=== PATIENT | female | born 2000 | race Caucasian/White ===

== ENCOUNTER → 2022-07-21 14:35 | Outpatient (BNVA) | payer BC, SELFPAY | PROVIDERS: PCP Physician Assistant; Visit Provider Nurse Practitioner Psychiatric/Mental Health | DX: F11.20 Opioid dependence, uncomplicated (principal) | CPT/HCPCS: 80305 ==

== ENCOUNTER → 2022-07-26 11:29 | Outpatient (BNVA) | payer BC, SELFPAY | PROVIDERS: PCP Physician Assistant; Visit Provider Nurse Practitioner Psychiatric/Mental Health | DX: Z51.81 Encounter for therapeutic drug level monitoring (principal); Z79.899 Other long term (current) drug therapy | CPT/HCPCS: 80305 ==

== ENCOUNTER → 2022-08-23 16:03 | Outpatient (BNVA) | payer BC, SELFPAY | PROVIDERS: PCP Physician Assistant; Visit Provider Nurse Practitioner Psychiatric/Mental Health | DX: Z51.81 Encounter for therapeutic drug level monitoring (principal); F11.20 Opioid dependence, uncomplicated | CPT/HCPCS: 80305 ==

== ENCOUNTER 2022-08-31 16:08 | Outpatient (REF) | payer BC, SELFPAY ==
[2022-08-31 16:57] LABS: MANUAL DIFF FLAG NO
[2022-08-31 17:17] LABS: Basophils Percent Auto 0.8 % (0-2); Eosinophils Absolute Auto 0.2 X10*3/uL (0.0-0.4); Eosinophils Percent Auto 3.5 % (0-4); Hematocrit 37.6 % (37.0-47.0); Hemoglobin 12.1 g/dl (12.0-16.0); Imm Gran Abs Auto 0.01 X10*3/uL (0.00-0.03); Imm Gran Pct Auto 0.2 % (0.0-0.4); Lymphocytes Absolute Auto 2.8 X10*3/uL (1.2-4.9); Mean Corpuscular HGB Conc 32.2 g/dl (31.0-35.0); Mean Corpuscular Hemoglobin 27.4 pg (27.0-33.0); Mean Corpuscular Volume 85.1 fL (80.0-98.0); Mean Platelet Volume 9.9 fL (9.4-12.3); Monocytes Absolute Auto 0.5 X10*3/uL (0.1-1.2); Neutrophils Absolute Auto 1.4 x10*3/uL (2.0-8.3); Neutrophils Percent Auto 27.5 % (45-73); Platelet Count 226 X10*3/uL (160-400); Red Blood Count 4.42 X10*6/uL (4.20-5.50); Red Cell Distribution Width 15.2 % (11.0-16.0); White Blood Count 4.9 X10*3/uL (4.8-10.8)
[2022-08-31 17:51] LABS: Alanine Aminotransferase 192 U/L (0-31); Albumin Level 4.2 g/dL (3.5-5.0); Alkaline Phosphatase 140 U/L (39-117); Anion Gap 16 (12-20); Aspartate Amino Transferase 84 U/L (5-31); Bilirubin Direct < 0.2 mg/dL (0.0-0.5); Bilirubin Total 0.3 mg/dL (0.0-1.0); Blood Urea Nitrogen 9 mg/dL (9-16); Carbon Dioxide 24 mmol/L (22-29); Chloride 107 mmol/L (96-108); Estimated Glomerular Filt Rate > 60; Glucose Random 103 mg/dL (60-115); Potassium 4.6 mmol/L (3.3-5.1); Sodium 142 mmol/L (135-145); Total Protein 7.5 g/dL (6.5-8.0)
[2022-09-01 07:59] LABS: HBS Num1 12.21 mIU/mL (0-7.99); HBc Num1 0.11 S/CO (0.00-0.79); HBsAGNum1 0.23 S/CO (0.00-0.99); Hepatitis A Antibody IgM 0.29 Index (0-0.79); Hepatitis B Core Antibody Nonreactive (Nonreactive); Hepatitis B Surface Antigen Negative (Negative); ~HepC Num1 14.49 S/CO (0.00-0.79); ~Hepatitis A Antibody IgM Nonreactive (Nonreactive); ~Hepatitis B Surface Antibody REACTIVE (Nonreactive); ~Hepatitis C Antibody Reactive (Nonreactive)
== END 2022-08-31 16:09 | disposition home or self-care (01) ==
LOC: HO.LAB 16:08
PROVIDERS: PCP Physician Assistant; Visit Provider Nurse Practitioner Psychiatric/Mental Health
DX: F11.20 Opioid dependence, uncomplicated (principal); Z51.81 Encounter for therapeutic drug level monitoring; Z79.899 Other long term (current) drug therapy
CPT/HCPCS: 36415; 80048; 80076; 80305; 85025; 86704; 86706; 86709; 86803; 87340

== ENCOUNTER 2022-09-10 16:10 | Outpatient (REF) | payer BC, SELFPAY ==
[2022-09-10 17:00] LABS: Alanine Aminotransferase 33 U/L (0-31); Albumin Level 4.5 g/dL (3.5-5.0); Alkaline Phosphatase 115 U/L (39-117); Aspartate Amino Transferase 28 U/L (5-31); Bilirubin Direct 0.2 mg/dL (0.0-0.5); Bilirubin Total 0.4 mg/dL (0.0-1.0); Total Protein 7.8 g/dL (6.5-8.0)
[2022-09-14 20:46] LABS: HCV Log PCR 3.55 Log IU/mL (NOT DETECTED); HepC Viral Load 3550 IU/mL (NOT DETECTED)
== END 2022-09-10 16:11 | disposition home or self-care (01) ==
LOC: HO.LAB 16:10
PROVIDERS: Visit Provider Nurse Practitioner Psychiatric/Mental Health
DX: F11.20 Opioid dependence, uncomplicated (principal); Z51.81 Encounter for therapeutic drug level monitoring
CPT/HCPCS: 36415; 80076; 80305; 87522

== ENCOUNTER → 2022-09-17 16:00 | Outpatient (BNVA) | payer BC, SELFPAY | PROVIDERS: PCP Physician Assistant; Visit Provider Nurse Practitioner Psychiatric/Mental Health | DX: F11.20 Opioid dependence, uncomplicated (principal); Z32.02 Encounter for pregnancy test, result negative; Z51.81 Encounter for therapeutic drug level monitoring; Z79.899 Other long term (current) drug therapy | CPT/HCPCS: 80305; 81025; 96372 ==

== ENCOUNTER → 2022-10-15 15:57 | Outpatient (BNVA) | payer BC, SELFPAY | PROVIDERS: PCP Physician Assistant; Visit Provider Nurse Practitioner Psychiatric/Mental Health | DX: Z51.81 Encounter for therapeutic drug level monitoring (principal); F11.20 Opioid dependence, uncomplicated; F10.10 Alcohol abuse, uncomplicated | CPT/HCPCS: 80305; 81025; 96372 ==

== ENCOUNTER → 2022-10-19 16:15 | Outpatient (BNVA) | payer BC, SELFPAY | PROVIDERS: PCP Physician Assistant; Visit Provider Nurse Practitioner Psychiatric/Mental Health | DX: F10.10 Alcohol abuse, uncomplicated (principal) ==

== ENCOUNTER → 2022-11-11 15:50 | Outpatient (BNVA) | payer BC, SELFPAY | PROVIDERS: PCP Physician Assistant; Visit Provider Nurse Practitioner Psychiatric/Mental Health | DX: F11.20 Opioid dependence, uncomplicated (principal); F10.10 Alcohol abuse, uncomplicated; Z51.81 Encounter for therapeutic drug level monitoring; Z79.899 Other long term (current) drug therapy | CPT/HCPCS: 80305; 96372 ==

== ENCOUNTER → 2022-12-08 15:57 | Outpatient (BNVA) | payer BC, SELFPAY | PROVIDERS: PCP Physician Assistant; Visit Provider Nurse Practitioner Psychiatric/Mental Health | DX: Z51.81 Encounter for therapeutic drug level monitoring (principal); F11.20 Opioid dependence, uncomplicated; F10.10 Alcohol abuse, uncomplicated | CPT/HCPCS: 80305; 81025; 96372 ==

== ENCOUNTER → 2023-01-04 16:12 | Outpatient (BNVA) | payer BC, SELFPAY | PROVIDERS: PCP Physician Assistant; Visit Provider Nurse Practitioner Psychiatric/Mental Health | DX: Z51.81 Encounter for therapeutic drug level monitoring (principal); F11.20 Opioid dependence, uncomplicated; F10.10 Alcohol abuse, uncomplicated | CPT/HCPCS: 80305; 81025; 96372 ==

== ENCOUNTER → 2023-02-04 10:23 | Outpatient (BNVA) | payer BC, SELFPAY | PROVIDERS: PCP Physician Assistant; Visit Provider Nurse Practitioner Psychiatric/Mental Health | DX: F11.20 Opioid dependence, uncomplicated (principal); F10.10 Alcohol abuse, uncomplicated; Z79.899 Other long term (current) drug therapy | CPT/HCPCS: 80305; 81025; 96372 ==

== ENCOUNTER → 2023-03-04 15:49 | Outpatient (BNVA) | payer BC, SELFPAY | PROVIDERS: PCP Physician Assistant; Visit Provider Nurse Practitioner Psychiatric/Mental Health | DX: F11.20 Opioid dependence, uncomplicated (principal); F10.20 Alcohol dependence, uncomplicated; Z79.899 Other long term (current) drug therapy | CPT/HCPCS: 80305; 81025; 96372 ==

== ENCOUNTER → 2023-04-01 16:04 | Outpatient (BNVA) | payer BC, SELFPAY | PROVIDERS: PCP Physician Assistant; Visit Provider Nurse Practitioner Psychiatric/Mental Health | DX: Z51.81 Encounter for therapeutic drug level monitoring (principal); F11.20 Opioid dependence, uncomplicated; Z32.02 Encounter for pregnancy test, result negative | CPT/HCPCS: 80305; 81025; 96372 ==

== ENCOUNTER → 2023-04-29 15:55 | Outpatient (BNVA) | payer BC, SELFPAY | PROVIDERS: PCP Physician Assistant; Visit Provider Nurse Practitioner Psychiatric/Mental Health | DX: F11.20 Opioid dependence, uncomplicated (principal); F10.20 Alcohol dependence, uncomplicated | CPT/HCPCS: 80305; 81025; 96372 ==

== ENCOUNTER 2023-06-01 15:14 | Outpatient (AMB) | payer BC, SELFPAY ==
--- NOTE | 2023-06-01 15:19 | A.OFFVIS_ITS ---
Intake Intake Visit Reasons: bup inj Intake Note: The patient presents for a bup inj Sectionizer Required: No Allergies No Known Allergies Allergy (Verified 06/01/23 15:19) Do you need a note to return to daycare/school/sports/work: No HPI bup inj HPI Details Patient presents for follow-up and Sublocade injection. Patient reports that she continues to do well with recovery. Still engaged with the [facility]. Will be starting school in July, spoke with the admissions people today. Excited and motivated about this. Reporting that she continues to have occasional withdrawal symptoms, states that it happens between 2 to 4 times a month. Symptoms relieved by taking 4 mg film. No other side effects to report. Review of Systems Const Reports as per HPI and Reports no additional complaints Physical Exam Const General: cooperative, healthy appearing, comfortable, no acute distress, well developed and alert Nutritional Appearance: average body habitus Orientation/consciousness: patient oriented x3 Limitations: no limitations Neuro General: patient oriented x3 Psych Appearance: grossly normal Mental Status: mental status grossly normal Speech and movement: Normal speech and movement present Affect: normal affect Attitude: cooperative Thought process: Normal thought process present Thought content: Normal thought content present Insight: Good insight present (Psych) Judgement: Good judgement present (Psych) Office Meds Sublocade ER Performing Provider: Melissa Rojas CNP Administered by: Dianna Moy RN on 06/01/23 16:26 Dose Route Admin Location Lot Number Expiration Date [facility] Outside Industrial Sales Representative 100 mg subcut LLQ [id number] 05/29/24 [address]-1 [employer] Comments: Pt tolerated injection. Pt reminded to monitor for s/s of infection, pain, swelling, redness, fever. Results AMB 14 Panel Urine Drug Screen Urine Marijuana (THC) Positive Last Edit by Rema Hernandez CMA on 06/01/23 15:31 Urine Cocaine Negative Last Edit by Rema Hernandez CMA on 06/01/23 15:31 Urine Morphine Negative Last Edit by Rema Hernandez CMA on 06/01/23 15:31 Urine Methamphetamine Negative Last Edit by Rema Hernandez CMA on 06/01/23 15:31 Urine Amphetamine Negative Last Edit by Rema Hernandez CMA on 06/01/23 15:3 1 Urine Benzodiazepine Negative Last Edit by Rema Hernandez CMA on 06/01/23 15:31 Urine Barbiturates Negative Last Edit by Rema Hernandez CMA on 06/01/23 15: 31 Urine Methadone Negative Last Edit by Rema Hernandez CMA on 06/01/23 15:31 Urine Buprenorphine Positive Last Edit by Rema Hernandez CMA on 06/01/23 15 :31 Urine Tricyclic Antidepressant Negative Last Edit by Rema Hernandez CMA on 06/01/23 15:31 Urine MDMA Negative Last Edit by Rema Hernandez CMA on 06/01/23 15:31 Urine Oxycodone Negative Last Edit by Rema Hernandez CMA on 06/01/23 15:31 Urine Phencyclidine Negative Last Edit by Rema Hernandez CMA on 06/01/23 15 :31 Urine Propoxyphene Negative Last Edit by Rema Hernandez CMA on 06/01/23 15: 31 AMB Test Urine AMB Test Urine Negative Last Edit by Rema Hernandez CMA on 15:32 Results Reviewed Results Reviewed: Laboratory Last Values [facility] Clinic Negative 06/01/23 15:20 POC Urine Buprenorphine Positive 06/01/23 15:20 POC Urine Morphine Negative 06/01/23 15:20 POC Urine Oxycodone Negative 06/01/23 15:20 POC Urine Methadone Negative 06/01/23 15:20 POC Urine Propoxyphene Negative 06/01/23 15:20 POC Urine Barbiturates Negative 06/01/23 15:20 POC U Tricyclic Antidpr Negative 06/01/23 15:20 POC Urine PCP Negative 06/01/23 15:20 POC Ur Amphetamines Negative 06/01/23 15:20 POC Ur Methamphetamine Negative 06/01/23 15:20 POC Urine MDMA Negative 06/01/23 15:20 POC Ur Benzodiazepine Negative 06/01/23 15:20 POC Urine Cocaine Negative 06/01/23 15:20 POC Ur Marijuana (THC) Positive 06/01/23 15:20 Assessment & Plan Assessment & Plan (1) Opioid use disorder, severe, dependence: Code(s): F11.20 - Opioid dependence, uncomplicated Plan: * Tolerated injection * Follow-up 4 weeks (2) Alcohol use disorder, severe, dependence: Code(s): F10.20 - Alcohol dependence, uncomplicated Plan: * Relapse prevention discussion Orders: Orders 2 AMB Buprenorphine Injection - Patient Supplied Today F10.20 - Alcohol dependence, uncomplicated, F11.20 - Opioid dependence, uncomplicated AMB 14 Panel Urine Drug Screen Today Z51.81 - Encounter for therapeutic drug level monitoring AMB HCG Urine Test Today Z32.01 - Encounter for test, result positive, Z32.02 - Encounter for test, result negative Medications: New naloxone 4 mg/actuation (Narcan) spray 1 dose into ONE nostril. Wait two minutes before spraying second dose in other nostril. 4 mg intranasal Q2M PRN 2 ea 2RF opioid overdose Refilled buprenorphine-naloxone 8-2 mg (Suboxone) use daily as needed for breakthrough withdrawal symptoms. 1 film sublingual DAILY PRN 10 ea 0RF withdrawal symptoms Coding Level of Care Code Est Pt Level 3 (88946) Diagnoses Opioid use disorder, severe, dependence F11.20 Alcohol use disorder, severe, dependence F10.20
== END 2023-06-01 16:08 | disposition home or self-care (01) ==
LOC: HO.HCC 15:14
PROVIDERS: PCP Physician Assistant; Visit Provider Nurse Practitioner Psychiatric/Mental Health
DX: Z32.02 Encounter for pregnancy test, result negative (principal); Z32.01 Encounter for pregnancy test, result positive; F10.20 Alcohol dependence, uncomplicated; F11.20 Opioid dependence, uncomplicated; Z51.81 Encounter for therapeutic drug level monitoring
CPT/HCPCS: 99213; Q9991

== ENCOUNTER → 2023-06-01 15:14 | Outpatient (BNVA) | payer BC, SELFPAY | PROVIDERS: PCP Physician Assistant; Visit Provider Nurse Practitioner Psychiatric/Mental Health | DX: F11.20 Opioid dependence, uncomplicated (principal); F10.20 Alcohol dependence, uncomplicated; Z51.81 Encounter for therapeutic drug level monitoring; Z79.899 Other long term (current) drug therapy; Z32.02 Encounter for pregnancy test, result negative | CPT/HCPCS: 80305; 81025; 96372 ==

== ENCOUNTER 2023-07-13 13:21 | Outpatient (AMB) | payer BC, SELFPAY ==
--- NOTE | 2023-07-13 13:24 | AM.OFFVISNUR ---
Intake Vital Signs 07/13/23 13:36 BP 116/78 Blood Pressure Location Lt radial Position Sitting Pulse 72 Pulse Source Pulse Oximeter Pulse Oximetry (%) 96 Oxygen Delivery Method Room Air Intake Visit Reasons: bup inj Intake Note: the patient presents for a sub inj Extension Associate Required: No Allergies No Known Allergies Allergy (Verified 07/13/23 13:28) Do you need a note to return to daycare/school/sports/work: No Results AMB 14 Panel Urine Drug Screen Urine Marijuana (THC) Positive Last Edit by Rema Hernandez CMA on 07/13/23 13:38 Urine Cocaine Negative Last Edit by Rema Hernandez CMA on 07/13/23 13:38 Urine Morphine Negative Last Edit by Rema Hernandez CMA on 07/13/23 13:38 Urine Methamphetamine Negative Last Edit by Rema Hernandez CMA on 07/13/23 13:38 Urine Amphetamine Negative Last Edit by Rema Hernandez CMA on 07/13/23 13:38 Urine Benzodiazepine Negative Last Edit by Rema Hernandez CMA on 07/13/23 13:38 Urine Barbiturates Negative Last Edit by Rema Hernandez CMA on 07/13/23 13:38 Urine Methadone Negative Last Edit by Rema Hernandez CMA on 07/13/23 13:38 Urine Buprenorphine Negative Last Edit by Rema Hernandez CMA on 07/13/23 13:38 Urine Tricyclic Antidepressant Negative Last Edit by Rema Hernandez CMA on 07/13/23 13:38 Urine MDMA Negative Last Edit by Rema Hernandez CMA on 07/13/23 13:38 Urine Oxycodone Negative Last Edit by Rema Hernandez CMA on 07/13/23 13:38 Urine Phencyclidine Negative Last Edit by Rema Hernandez CMA on 07/13/23 13:38 Urine Propoxyphene Negative Last Edit by Rema Hernandez CMA on 07/13/23 13:38 AMB Test Urine AMB Test Urine Negative Last Edit by Rema Hernandez CMA on 07/13/23 13:39 Coding Assessment & Plan Assessment & Plan Orders: Orders AMB 14 Panel Urine Drug Screen Today Z51.81 - Encounter for therapeutic drug level monitoring AMB HCG Urine Test Today Z32.01 - Encounter for test, result positive, Z32.02 - Encounter for test, result negative
[2023-07-13 13:36] VITALS: BP 116/78; PULSE 72; O2SAT 96
== END 2023-07-13 14:04 | disposition home or self-care (01) ==
LOC: HO.HCC 13:21
PROVIDERS: PCP Physician Assistant; Visit Provider Nurse Practitioner Family
DX: Z32.02 Encounter for pregnancy test, result negative (principal); Z32.01 Encounter for pregnancy test, result positive; F11.20 Opioid dependence, uncomplicated; Z51.81 Encounter for therapeutic drug level monitoring
CPT/HCPCS: Q9991

== ENCOUNTER → 2023-07-13 13:21 | Outpatient (BNVA) | payer BC, SELFPAY | PROVIDERS: PCP Physician Assistant; Visit Provider Nurse Practitioner Family | DX: F11.20 Opioid dependence, uncomplicated (principal) | CPT/HCPCS: 80305; 81025; 96372 ==

== ENCOUNTER 2023-08-15 15:52 | Outpatient (AMB) | payer BC, SELFPAY ==
--- NOTE | 2023-08-15 15:57 | MHC.OFFVIS ---
Intake Vital Signs 08/15/23 16:05 BP 110/70 Blood Pressure Location Lt radial Position Sitting Pulse 74 Pulse Source Pulse Oximeter Pulse Oximetry (%) 96 Oxygen Delivery Method Room Air Intake Visit Reasons: Sub Inj Intake Note: The patient presents for a sub inj Bale Breaker Operator Required: No Allergies No Known Allergies Allergy (Verified 08/15/23 15:59) HPI Sub Inj HPI Details Patient presents for 4 week follow up and sublocade injection. Doing well with recovery--still attending school and working Considering Brixadi for next injection reporting almost daily headaches--planning to see PCP soon States that she discontinued BC 2 months ago and headaches began shortly after that Review of Systems Const Reports as per HPI and Reports no additional complaints Physical Exam Vital Signs: Last Vital Signs Pulse 74 08/15/23 16:05 BP 110/70 08/15/23 16:05 Pulse Ox 96 08/15/23 16:05 Oxygen Delivery Method Room Air 08/15/23 16:05 Const General: cooperative, healthy appearing, comfortable, no acute distress, well developed and alert Nutritional Appearance: average body habitus Orientation/consciousness: patient oriented x3 Limitations: no limitations Neuro General: patient oriented x3 Psych Appearance: grossly normal Mental Status: mental status grossly normal Speech and movement: Normal speech and movement present Affect: normal affect Attitude: cooperative Thought process: Normal thought process present Thought content: Normal thought content present Insight: Good insight present (Psych) Judgement: Good judgement present (Psych) Office Meds Sublocade 100 mg/0.5 mL solution,extended release subcutaneous syringe Performing Provider: Cheryle Veliz NP Performing Location: [email or web address] Administered by: Cheryle Veliz NP on 08/15/23 16:40 Dose Route Admin Location Dispensed Lot Number Expiration Date [facility] Ball Assembler 100 mg subcut LLQ 0.5 mL [id number] 07/30/24 [address]-1 [employer] Comments: No signs of redness, swelling, drainage to prior inj site. Pt tolerated injection well. Encouraged to call [facility] with questions or concerns. Results AMB Test Urine AMB Test Urine Negative Last Edit by Rema Hernandez CMA on 08/15/23 16:08 Results Reviewed Results Reviewed: Laboratory Last Values [facility] Clinic Negative 08/15/23 15:58 Assessment & Plan Assessment & Plan (1) Opioid use disorder, severe, dependence: Code(s): F11.20 - Opioid dependence, uncomplicated Plan: tolerated injection follow up 4 weeks will order brixadi Orders: Orders AMB HCG Urine Test Today Z32.01 - Encounter for test, result positive, Z32.02 - Encounter for test, result negative Melissa Rojas CNP AMB Buprenorphine Injection - Patient Supplied Today F11.20 - Opioid dependence, uncomplicated Cheryle Veliz NP Coding Level of Care Code Est Pt Level 4 (21182) Diagnoses Opioid use disorder, severe, dependence F11.20
[2023-08-15 16:05] VITALS: BP 110/70; PULSE 74; O2SAT 96
== END 2023-08-15 16:32 | disposition home or self-care (01) ==
PROVIDERS: PCP Physician Assistant; Visit Provider Nurse Practitioner Psychiatric/Mental Health
DX: F11.20 Opioid dependence, uncomplicated (principal)
CPT/HCPCS: 99214

== ENCOUNTER → 2023-08-15 15:52 | Outpatient (BNVA) | payer BC, SELFPAY | PROVIDERS: PCP Physician Assistant; Visit Provider Nurse Practitioner Psychiatric/Mental Health | DX: F11.20 Opioid dependence, uncomplicated (principal) | CPT/HCPCS: 81025; 96372; Q9992 ==

== ENCOUNTER 2023-09-12 15:53 | Outpatient (AMB) | payer BC, SELFPAY ==
--- NOTE | 2023-09-12 15:53 | AM.OFFVISNUR ---
Intake Vital Signs 09/12/23 16:05 BP 122/70 Blood Pressure Location Lt radial Position Sitting Pulse 91 Pulse Source Pulse Oximeter Pulse Oximetry (%) 99 Oxygen Delivery Method Room Air Intake Visit Reasons: Sub Inj Intake Note: the patient presents for a sub inj Terminal Makeup Operator Required: No Allergies No Known Allergies Allergy (Verified 09/12/23 16:05) Nursing Note Pt presents for OUD follow up and Sublocade injection. Reports things are going well, working and going to school online. Working with [facility] and utilizing their coach professional athletes, reports it is helpful. Thinking about spacing out next Sublocade injection---going to make appt in 5 weeks instead of 4. Will call and move appt up if she feels 5 weeks is too long. Office Meds Sublocade 100 mg/0.5 mL solution,extended release subcutaneous syringe Performing Provider: Cheryle Veliz NP Performing Location: [facility] Administered by: Ayleen Maldonado on 09/12/23 16:14 Dose Route Admin Location Dispensed Lot Number Expiration Date [facility] Software Quality Automation Engineer 100 mg subcut LUQ 0.5 mL [id number] 07/04/24 [address]-4 [employer]. Comments: Pt tolerated injection well. Educated on signs/symptoms of infection, encouraged to call the [facility] with questions or concerns. Results AMB Test Urine AMB Test Urine Negative Last Edit by Rema Hernandez CMA on 09/12/23 16:07 Coding Assessment & Plan Assessment & Plan Orders: Orders AMB Buprenorphine Injection - Patient Supplied 09/12/23 F11.20 - Opioid dependence, uncomplicated Cheryle Veliz NP AMB HCG Urine Test 09/12/23 Z32.01 - Encounter for test, result positive, Z32.02 - Encounter for test, result negative Cheryle Veliz NP Medications: Refilled quetiapine Take 100 mg tablet with quetiapine 50 mg tablet at bedtime, for total bedtime dose of 150 mg. 100 mg PO BEDTIME 30 tabs 2RF Melissa Rojas CNP quetiapine Take 50 mg at 08:00, 13:00, bedtime. 50 mg PO TID 90 tabs 2RF Melissa Rojas CNP
[2023-09-12 16:05] VITALS: BP 122/70; PULSE 91; O2SAT 99
== END 2023-09-12 16:29 | disposition home or self-care (01) ==
PROVIDERS: PCP Physician Assistant; Visit Provider Nurse Practitioner Family
DX: F11.20 Opioid dependence, uncomplicated (principal)

== ENCOUNTER → 2023-09-12 15:53 | Outpatient (BNVA) | payer BC, SELFPAY | PROVIDERS: PCP Physician Assistant; Visit Provider Nurse Practitioner Family | DX: F11.20 Opioid dependence, uncomplicated (principal); Z32.02 Encounter for pregnancy test, result negative; Z51.81 Encounter for therapeutic drug level monitoring; Z79.899 Other long term (current) drug therapy | CPT/HCPCS: 81025; 96372; Q9992 ==

== ENCOUNTER 2023-10-17 15:53 | Outpatient (AMB) | payer BC, SELFPAY ==
--- NOTE | 2023-10-17 15:56 | MHC.AM.SUB ---
Intake Vital Signs 10/17/23 16:07 BP 110/70 Blood Pressure Location Lt radial Position Sitting Pulse 99 Pulse Source Pulse Oximeter Pulse Oximetry (%) 96 Oxygen Delivery Method Room Air Intake Visit Reasons: SUB Inj Intake Note: the patient presets for a sub inj Medical Writer Required: No Allergies No Known Allergies Allergy (Verified 10/17/23 16:09) Do you need a note to return to daycare/school/sports/work: No HPI SUB Inj HPI Details Patient presents for OUD treatment and follow up Reports she is doing well, is receiving paperwork tomorrow to enable her to get her driving license re-instated which she is pleased about. She is expressing desire to try and quit vaping, requesting a script for 14mg nicotine patches as she felt the 21mg ones were too strong. Has no recovery concerns today. Review of Systems Const Reports as per HPI Physical Exam Vital Signs: Last Vital Signs Pulse 99 10/17/23 16:07 BP 110/70 10/17/23 16:07 Pulse Ox 96 10/17/23 16:07 Oxygen Delivery Method Room Air 10/17/23 16:07 Const General: cooperative, healthy appearing and no acute distress Resp Effort & Inspection: normal respiratory effort Skin General skin exam: no rashes or lesions noted Psych Appearance: grossly normal and well kempt Mental Status: mental status grossly normal Attitude: cooperative Thought process: Normal thought process present Thought content: Normal thought content present Insight: Good insight present (Psych) Office Meds Sublocade 100 mg/0.5 mL solution,extended release subcutaneous syringe Performing Provider: Cheryle Veliz NP Performing Location: [facility] Administered by: Cheryle Veliz NP on 10/17/23 16:22 Dose Route Admin Location Dispensed Lot Number Expiration Date [facility] Program Administrator 100 mg subcut RLQ 0.5 mL [id number] 12/28/24 [address]-7 [employer]. Comments: Patient tolerated injection well. Reviewed s/sx of infection, encouraged to call [facility] with any questions or concerns. Results AMB Test Urine AMB Test Urine Negative Last Edit by Rema Hernandez CMA on 10/17/23 16:12 Results Reviewed Results Reviewed: Laboratory Last Values [facility]st Clinic Negative 10/17/23 16:09 Assessment & Plan Assessment & Plan (1) Opioid use disorder, severe, dependence: Code(s): F11.20 - Opioid dependence, uncomplicated Plan: Tolerated injection follow up 4 weeks Orders: Orders AMB HCG Urine Test Today Z32.01 - Encounter for test, result positive, Z32.02 - Encounter for test, result negative AMB Buprenorphine Injection - Patient Supplied Today F11.20 - Opioid dependence, uncomplicated Medications: New nicotine 1 patch transdermal DAILY 14 ea 0RF Coding Level of Care Code Est Pt Level 3 (45459) Diagnoses Opioid use disorder, severe, dependence F11.20
[2023-10-17 16:07] VITALS: BP 110/70; PULSE 99; O2SAT 96
== END 2023-10-17 16:22 | disposition home or self-care (01) ==
PROVIDERS: PCP Physician Assistant; Visit Provider Nurse Practitioner Family
DX: Z32.02 Encounter for pregnancy test, result negative (principal); Z32.01 Encounter for pregnancy test, result positive; F11.20 Opioid dependence, uncomplicated
CPT/HCPCS: 99213

== ENCOUNTER → 2023-10-17 15:53 | Outpatient (BNVA) | payer BC, SELFPAY | PROVIDERS: PCP Physician Assistant; Visit Provider Nurse Practitioner Family | DX: F11.20 Opioid dependence, uncomplicated (principal) | CPT/HCPCS: 81025; 96372; Q9992 ==

== ENCOUNTER 2023-11-22 15:56 | Outpatient (AMB) | payer BC, SELFPAY ==
--- NOTE | 2023-11-22 16:01 | AM.OFFVISNUR ---
Intake Vital Signs 11/22/23 16:14 BP 120/74 Blood Pressure Location Lt radial Position Sitting Pulse 78 Pulse Source Pulse Oximeter Pulse Oximetry (%) 97 Oxygen Delivery Method Room Air Intake Visit Reasons: SUB Inj Intake Note: the patient presents for a sub inj Fountain Manager Required: No Allergies No Known Allergies Allergy (Verified 11/22/23 16:03) Do you need a note to return to daycare/school/sports/work: No Nursing Note Patient here today for Sublocade injection, denies any concerns or complications from previous. A+O x4, in good spirits, speaking in clear/full sentences. Patient requesting an increase in her nicotine patch and a refill on her seroquel, will send to provider. Patient also states she is interested in learning more about Brixadi and speaking with Cheryle MCNAMARA about this. Appt made in 4 weeks, will talk to Cheryle, and in the mean time states she will check with insurance. Office Meds Sublocade 100 mg/0.5 mL solution,extended release subcutaneous syringe Performing Provider: Cheryle Veliz NP Performing Location: [facility] Administered by: Saima Rashid RN on 11/22/23 16:07 Dose Route Admin Location Dispensed Lot Number Expiration Date [facility] Occupational Therapist Home Based 100 mg subcut LLQ 0.5 mL [id number] 12/01/24 [address]-6 [email or web address]. Results AMB Test Urine AMB Test Urine Negative Last Edit by Rema Hernandez CMA on 11/22/23 16:20 Coding Assessment & Plan Assessment & Plan Orders: Orders AMB HCG Urine Test Today Z32.01 - Encounter for test, result positive, Z32.02 - Encounter for test, result negative AMB Buprenorphine Injection - Patient Supplied Today F11.20 - Opioid dependence, uncomplicated
[2023-11-22 16:14] VITALS: BP 120/74; PULSE 78; O2SAT 97
== END 2023-11-22 16:25 | disposition home or self-care (01) ==
PROVIDERS: PCP Physician Assistant
DX: Z32.02 Encounter for pregnancy test, result negative (principal); Z32.01 Encounter for pregnancy test, result positive; F11.20 Opioid dependence, uncomplicated

== ENCOUNTER → 2023-11-22 15:56 | Outpatient (BNVA) | payer BC, SELFPAY | PROVIDERS: PCP Physician Assistant | DX: F11.20 Opioid dependence, uncomplicated (principal) | CPT/HCPCS: 81025; 96372; Q9992 ==

== ENCOUNTER 2023-12-27 15:47 | Outpatient (AMB) | payer BC, SELFPAY ==
--- NOTE | 2023-12-27 15:47 | MHC.AM.SUB ---
Intake Vital Signs 12/27/23 15:53 BP 120/60 Blood Pressure Location Lt brachial Position Sitting Respiration 18 Pulse 85 Pulse Source Pulse Oximeter Pulse Oximetry (%) 96 Intake Visit Reasons: MAT Visit/ SUB Inj Allergies No Known Allergies Allergy (Verified 11/22/23 16:03) HPI MAT Visit/ SUB Inj HPI Details Patient presents for monthly sublocade injection She reports school is going well, work is going well Denies any recovery related concerns, denies cravings, tolerating suboxone injection well Asking about spacing her injection further apart due to impending change of insurance coverage in July She is expressing concern about out of pocket costs Reports she is making progress getting her drivers license reinstated, all that is left is to get paperork from [facility] and have a breathalyzer installed. Review of Systems Const Reports as per HPI Physical Exam Vital Signs: Last Vital Signs Pulse 85 12/27/23 15:53 Resp 18 12/27/23 15:53 BP 120/60 12/27/23 15:53 Pulse Ox 96 12/27/23 15:53 Const General: cooperative and healthy appearing Resp Effort & Inspection: normal respiratory effort Psych Appearance: grossly normal Mental Status: mental status grossly normal Speech and movement: Normal speech and movement present Affect: normal affect Attitude: cooperative Office Meds Sublocade 100 mg/0.5 mL solution,extended release subcutaneous syringe Performing Provider: Cheryle Veliz NP Performing Location: [facility] Administered by: Saima Rashid RN on 12/27/23 16:18 Dose Route Admin Location Dispensed Lot Number Expiration Date [facility] Bench Press Operator 100 mg subcut rlq 0.5 mL [id number] 12/29/24 [address]-8 [email or web address]. Comments: Patient tolerated injection well with no stated or noted side effects. will call [facility] with any questions or concerns. Results AMB Test Urine AMB Test Urine Negative Last Edit by Saima Rashid RN on 12/27/23 16:27 Results Reviewed Results Reviewed: Laboratory Last Values Tst Clinic Negative 12/27/23 15:54 Assessment & Plan Assessment & Plan (1) Opioid use disorder, severe, dependence: Code(s): F11.20 - Opioid dependence, uncomplicated Plan: -Discussed risks of stopping injections too soon in her recovery -Discussed with her about looking into obtaining insurance coverage before making any decisions -Follow up 4 weeks Orders: Orders AMB HCG Urine Test Today F10.20 - Alcohol dependence, uncomplicated AMB Buprenorphine Injection - Patient Supplied Today F10.20 - Alcohol dependence, uncomplicated Coding Level of Care Code Est Pt Level 3 (43927) Diagnoses Opioid use disorder, severe, dependence F11.20
[2023-12-27 15:53] VITALS: BP 120/60; PULSE 85; RESP 18; O2SAT 96
== END 2023-12-27 16:17 | disposition home or self-care (01) ==
PROVIDERS: PCP Physician Assistant; Visit Provider Nurse Practitioner Family
DX: F10.20 Alcohol dependence, uncomplicated (principal); F11.20 Opioid dependence, uncomplicated
CPT/HCPCS: 99213

== ENCOUNTER → 2023-12-27 15:47 | Outpatient (BNVA) | payer BC, SELFPAY | PROVIDERS: PCP Physician Assistant; Visit Provider Nurse Practitioner Family | DX: F10.20 Alcohol dependence, uncomplicated (principal); F11.20 Opioid dependence, uncomplicated | CPT/HCPCS: 81025; 96372; Q9992 ==

== ENCOUNTER 2024-01-31 15:59 | Outpatient (AMB) | payer BC, SELFPAY ==
--- NOTE | 2024-01-31 16:03 | MHC.AM.SUB ---
Intake Vital Signs 01/31/24 16:09 BP 122/68 Blood Pressure Location Lt radial Position Sitting Pulse 98 Pulse Source Pulse Oximeter Pulse Oximetry (%) 99 Oxygen Delivery Method Room Air Intake Visit Reasons: sub inj Intake Note: The patient presents for a sub inj Instructor Of Sociology Required: No Allergies No Known Allergies Allergy (Verified 11/22/23 16:03) Do you need a note to return to daycare/school/sports/work: No Results AMB Test Urine AMB Test Urine Negative Last Edit by Rema Hernandez CMA on 01/31/24 16:10 Assessment & Plan Assessment & Plan Orders: Orders AMB HCG Urine Test Today Z32.01 - Encounter for test, result positive, Z32.02 - Encounter for test, result negative Coding
[2024-01-31 16:09] VITALS: BP 122/68; PULSE 98; O2SAT 99
--- NOTE | 2024-01-31 16:16 | AM.OFFVISNUR ---
Intake Vital Signs 01/31/24 16:09 BP 122/68 Blood Pressure Location Lt radial Position Sitting Pulse 98 Pulse Source Pulse Oximeter Pulse Oximetry (%) 99 Oxygen Delivery Method Room Air Intake Visit Reasons: sub inj Allergies No Known Allergies Allergy (Verified 11/22/23 16:03) Nursing Note Patient in to clinic today for sublocade injection. Patient states she is doing well in recovery, was trying to elongate her injections to 5 weeks the past 2 injections, but was having hot flashes, I educated patient that it is prescribed every 4 and recommended to try that. She agrees. She was very happy, well appearing, dressed in work uniform, smiling, states she is going to a [employer] [facility] fair to try and get better insurance and was hopeful. Office Meds Sublocade 100 mg/0.5 mL solution,extended release subcutaneous syringe Performing Provider: Cheryle Veliz NP Performing Location: [facility] Administered by: Saima Rashid RN on 01/31/24 16:31 Dose Route Admin Location Dispensed Lot Number Expiration Date [facility] Stonecutter Assistant 100 mg subcut LLQ 0.5 mL [id number] 07/01/24 [address]-2 [facility]. Results AMB Test Urine AMB Test Urine Negative Last Edit by Rema Hernandez CMA on 01/31/24 16:10 Coding Assessment & Plan Assessment & Plan Orders: Orders AMB Buprenorphine Injection - Patient Supplied Today F11.20 - Opioid dependence, uncomplicated AMB HCG Urine Test Today Z32.01 - Encounter for test, result positive, Z32.02 - Encounter for test, result negative
== END 2024-01-31 16:30 | disposition home or self-care (01) ==
PROVIDERS: PCP Physician Assistant
DX: Z32.02 Encounter for pregnancy test, result negative (principal); Z32.01 Encounter for pregnancy test, result positive; F11.20 Opioid dependence, uncomplicated

== ENCOUNTER → 2024-01-31 15:59 | Outpatient (BNVA) | payer BC, SELFPAY | PROVIDERS: PCP Physician Assistant | DX: F11.20 Opioid dependence, uncomplicated (principal) | CPT/HCPCS: 81025; 96372; Q9992 ==

== ENCOUNTER 2024-02-28 15:55 | Outpatient (AMB) | payer BC, SELFPAY ==
--- NOTE | 2024-02-28 15:54 | AM.OFFVISNUR ---
Intake Vital Signs 02/28/24 15:57 BP 138/88 Blood Pressure Location Lt brachial Position Sitting Pulse 85 Pulse Source Pulse Oximeter Pulse Oximetry (%) 99 Oxygen Delivery Method Room Air Intake Visit Reasons: sub inj Allergies No Known Allergies Allergy (Verified 02/28/24 15:58) Nursing Note Patient to office for injection today, alert and oriented x4. Patient tolerated injection with no stated or noted complications. She acknowledged that her insurance will be running out in july, we have talked previously about calling [employer] to start application, she verbally agrees to doing this and was also given the number to our financial sales assistant. Office Meds Sublocade 100 mg/0.5 mL solution,extended release subcutaneous syringe Performing Provider: Cheryle Veliz NP Performing Location: [facility] Administered by: Saima Rashid RN on 02/28/24 16:14 Dose Route Admin Location Dispensed Lot Number Expiration Date [facility] Dynamics Ax Developer 100 mg subcut 0.5 mL [id number] 12/29/24 [address]-6 [employer]. Coding Assessment & Plan Assessment & Plan Orders: Orders AMB Buprenorphine Injection - Patient Supplied Today F11.20 - Opioid dependence, uncomplicated
[2024-02-28 15:57] VITALS: BP 138/88; PULSE 85; O2SAT 99
== END 2024-02-28 16:37 | disposition home or self-care (01) ==
PROVIDERS: PCP Physician Assistant
DX: F11.20 Opioid dependence, uncomplicated (principal)

== ENCOUNTER → 2024-02-28 15:55 | Outpatient (BNVA) | payer BC, SELFPAY | PROVIDERS: PCP Physician Assistant | DX: F11.20 Opioid dependence, uncomplicated (principal) | CPT/HCPCS: 96372; Q9992 ==

== ENCOUNTER 2024-03-28 15:58 | Outpatient (AMB) | payer BC, SELFPAY ==
[2024-03-28 15:57] VITALS: BP 122/80; PULSE 85; O2SAT 99
--- NOTE | 2024-03-28 15:57 | AM.OFFVISNUR ---
Intake Vital Signs 03/28/24 15:57 BP 122/80 Blood Pressure Location Lt brachial Position Sitting Pulse 85 Pulse Source Pulse Oximeter Pulse Oximetry (%) 99 Oxygen Delivery Method Room Air Intake Visit Reasons: sub inj Allergies No Known Allergies Allergy (Verified 02/28/24 15:58) Office Meds Sublocade 100 mg/0.5 mL solution,extended release subcutaneous syringe Performing Provider: Cheryle Veliz NP Performing Location: [facility] Administered by: Saima Rashid RN on 03/28/24 16:19 Dose Route Admin Location Dispensed Lot Number Expiration Date [facility] Quality Systems Engineer 100 mg subcut 0.5 mL [id number] 12/29/24 [address]-3 [employer]. Results AMB Test Urine AMB Test Urine Negative Last Edit by Lizbeth Cornelius CMA on 03/28/24 16:04 Coding Assessment & Plan Assessment & Plan Orders: Orders AMB Buprenorphine Injection - Patient Supplied Today F11.20 - Opioid dependence, uncomplicated AMB HCG Urine Test Today Z32.02 - Encounter for test, result negative Medications: New Sublocade ER (buprenorphine) 100 mg (0.5 mL) subcut ONCE 0.5 mL 0RF NS F11.20 - Opioid dependence, uncomplicated
== END 2024-03-28 16:21 | disposition home or self-care (01) ==
PROVIDERS: PCP Physician Assistant
DX: F11.20 Opioid dependence, uncomplicated (principal); Z32.02 Encounter for pregnancy test, result negative

== ENCOUNTER → 2024-03-28 15:58 | Outpatient (BNVA) | payer BC, SELFPAY | PROVIDERS: PCP Physician Assistant | DX: F11.20 Opioid dependence, uncomplicated (principal); Z32.02 Encounter for pregnancy test, result negative | CPT/HCPCS: 81025; 96372; Q9992 ==

== ENCOUNTER 2024-05-02 15:50 | Outpatient (AMB) | payer BC, SELFPAY ==
--- NOTE | 2024-05-02 16:41 | AM.OFFVISNUR ---
Intake Visit Reasons: sub inj Allergies No Known Allergies Allergy (Verified 02/28/24 15:58) Nursing Note Patient to office for sublocade 100mg injection, which was administered in the RLQ, patient tolerated well with no noted or stated side effects. Patient was in good spirits, smiling, talking in clear/full sentences. Will see me in 4 weeks for follow up and understands she will need to see the provider at her visit 4 weeks after next for follow up. Office Meds Sublocade 100 mg/0.5 mL solution,extended release subcutaneous syringe Performing Provider: Melissa Rojas CNP Performing Location: [facility] Administered by: Siama Rashid RN on 05/02/24 09:29 Dose Route Admin Location Dispensed Lot Number Expiration Date [facility] Hand Slitter 100 mg subcut RLQ 0.5 mL [id number] 12/29/24 [address]-9 [place]. Assessment & Plan Assessment & Plan Orders: Orders AMB Buprenorphine Injection - Patient Supplied 05/02/24 F11.20 - Opioid dependence, uncomplicated
== END 2024-05-02 16:09 | disposition home or self-care (01) ==
PROVIDERS: PCP Physician Assistant
DX: F11.20 Opioid dependence, uncomplicated (principal)

== ENCOUNTER → 2024-05-02 15:50 | Outpatient (BNVA) | payer BC, SELFPAY | PROVIDERS: PCP Physician Assistant | DX: F11.20 Opioid dependence, uncomplicated (principal) | CPT/HCPCS: 96372; Q9992 ==

== ENCOUNTER 2024-05-29 15:56 | Outpatient (AMB) | payer BC, SELFPAY ==
--- NOTE | 2024-05-29 16:06 | MHC.AM.SUB ---
Intake Visit Reasons: MAT/sub inj Allergies No Known Allergies Allergy (Verified 02/28/24 15:58) HPI HPI MAT/sub inj: Details: Patient presents for follow up and Sublocade injection Doing well with medication. 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 Will be switching insurance at the end of July, concerned about medications and injection--encouraged to let us know as soon as she finds out what her new insurance will be Taking a long weekend with her dog at the end of May, looking forward to that Review of Systems Const Reports as per HPI and Reports no additional complaints Physical Exam Const General: cooperative, healthy appearing and well groomed Nutritional Appearance: average body habitus Orientation/consciousness: patient oriented x3 Limitations: no limitations Neuro General: patient oriented x3 Office Meds Sublocade 100 mg/0.5 mL solution,extended release subcutaneous syringe Performing Provider: Melissa Rojas CNP Performing Location: [facility] Administered by: Ayleen Maldonado on 05/29/24 16:11 Dose Route Admin Location Dispensed Lot Number Expiration Date [facility] Head Cashier 100 mg subcut RUQ 0.5 mL [id number] 12/29/24 [address]-3 [employer]. Comments: Pt tolerated injection well. Educated on signs/symptoms of infection, encouraged to call the [facility] with questions or concerns. Results AMB Test Urine AMB Test Urine Negative Last Edit by Ayleen Maldonado on 05/29/24 16:11 Results Reviewed Results Reviewed: Laboratory Last Values [facility] Negative 05/29/24 16:09 Assessment & Plan Assessment & Plan (1) Opioid use disorder, severe, dependence: Code(s): F11.20 - Opioid dependence, uncomplicated Category: Medical Plan: tolerated injection follow up 4-5 weeks encouraged to call office with any concerns before next appt Orders: Orders AMB HCG Urine Test 05/29/24 F11.20 - Opioid dependence, uncomplicated AMB Buprenorphine Injection - Patient Supplied 05/29/24 F11.20 - Opioid dependence, uncomplicated
== END 2024-05-29 16:36 | disposition home or self-care (01) ==
PROVIDERS: PCP Physician Assistant; Visit Provider Nurse Practitioner Psychiatric/Mental Health
DX: F11.20 Opioid dependence, uncomplicated (principal)
CPT/HCPCS: 99213

== ENCOUNTER → 2024-05-29 15:56 | Outpatient (BNVA) | payer BC, SELFPAY | PROVIDERS: PCP Physician Assistant | DX: F11.20 Opioid dependence, uncomplicated (principal) | CPT/HCPCS: 81025; 96372; Q9992 ==

== ENCOUNTER 2024-06-26 09:08 | Outpatient (AMB) | payer BC, SELFPAY ==
--- NOTE | 2024-06-26 09:20 | AM.OFFVISNUR ---
Intake Visit Reasons: Sub Injection Allergies No Known Allergies Allergy (Verified 02/28/24 15:58) Nursing Note Patient Presents for Sublocade Injection. Current Dose 100mg . Given in the RUQ with no noted or stated complication. Denies any issues with previous injection. Denies symptoms, and denies any break through cravings. Will follow up with RN in 4 weeks for injection. Office Meds Sublocade 100 mg/0.5 mL solution,extended release subcutaneous syringe Performing Provider: Melissa Rojas CNP Performing Location: [facility] Administered by: Saima Rashid RN on 06/26/24 09:10 Dose Route Admin Location Dispensed Lot Number Expiration Date [facility] Lithographic Proofer 100 mg subcut RUQ 0.5 mL [id number] 08/31/25 [address]-2 [employer]. Assessment & Plan Assessment & Plan Orders: Orders AMB Buprenorphine Injection - Patient Supplied 06/26/24 F11.90 - Opioid use, unspecified, uncomplicated Medications: New Sublocade ER (buprenorphine) 100 mg (0.5 mL) subcut ONCE 0.5 mL 0RF NS F11.90 - Opioid use, unspecified, uncomplicated
== END 2024-06-26 10:06 | disposition home or self-care (01) ==
PROVIDERS: PCP Physician Assistant
DX: F11.90 Opioid use, unspecified, uncomplicated (principal)

== ENCOUNTER → 2024-06-26 09:08 | Outpatient (BNVA) | payer BC, SELFPAY | PROVIDERS: PCP Physician Assistant | DX: F11.90 Opioid use, unspecified, uncomplicated (principal) | CPT/HCPCS: 96372; Q9992 ==

== ENCOUNTER 2024-07-25 16:02 | Outpatient (AMB) | payer BC, SELFPAY ==
--- NOTE | 2024-07-25 17:25 | AM.OFFVISNUR ---
Intake Visit Reasons: Sub Injection Allergies No Known Allergies Allergy (Verified 02/28/24 15:58) Nursing Note Patient Presents for sublocade Injection. Current Dose is 100mg. Given in the LUQ with no noted or stated complications. Denies any issues with previous injection. Denies symptoms, and denies any break through cravings. will follow up with RN in 4 weeks for injection. Will need to see provider for check in September . Office Meds Sublocade 100 mg/0.5 mL solution,extended release subcutaneous syringe Performing Provider: Melissa Rojas CNP Performing Location: [facility] Administered by: Saima Rashid RN on 07/27/24 15:31 Dose Route Admin Location Dispensed Lot Number Expiration Date [facility] Brood Station Manager 100 mg subcut LUQ 0.5 mL [id number] 08/31/25 [address]-7 [employer]. Assessment & Plan Assessment & Plan Orders: Orders Comprehensive Met. Panel 07/26/24 Z79.899 - Other long term care administrator (current) drug therapy AMB Buprenorphine Injection - Patient Supplied 07/25/24 F11.90 - Opioid use, unspecified, uncomplicated Medications: New Sublocade ER (buprenorphine) 100 mg (0.5 mL) subcut ONCE 0.5 mL 0RF NS F11.90 - Opioid use, unspecified, uncomplicated Discontinued clonidine HCl Discontinued Reason: Patient no longer taking 0.1 mg PO BID PRN 14 tabs 0RF withdrawls , anxiety
== END 2024-07-25 16:41 | disposition home or self-care (01) ==
PROVIDERS: PCP Physician Assistant
DX: F11.90 Opioid use, unspecified, uncomplicated (principal)

== ENCOUNTER → 2024-07-25 16:02 | Outpatient (BNVA) | payer BC, SELFPAY | PROVIDERS: PCP Physician Assistant | DX: F11.90 Opioid use, unspecified, uncomplicated (principal) | CPT/HCPCS: 96372; Q9992 ==

== ENCOUNTER 2024-11-07 16:05 | Outpatient (AMB) | payer BC, SELFPAY ==
--- OUTSIDE RECORDS SUMMARY | 2024-11-07 16:07 | XMS_ITS ---
Author Name [facility] Organization Unknown History of Medication Use Medication Directions Dispensed Refills Start Date End Date [facility] NICOTINE 21MG/24H PATCH 14S, [RxNorm: [id number]]mzigci51/01/2 022APPLY 1 PATCH TOPICALLY TO THE SKIN DAILY APPLY 1 PATCH TOPICALLY TO THE SKIN DAILY 07/15/2023 active HYDROXYZINE HCL 25MG TABS (WHITE), [RxNorm: [id number]]cniovr07/06/2 023TAKE 1 TABLET BY MOUTH THREE TIMES DAILY NEEDED FOR ANXIETY TAKE 1 TABLET BY MOUTH THREE TIMES DAILY NEEDED FOR ANXIETY 07/15/2023 active buprenorphine ER 100 mg/0.5 mL solutionexten.rel.merino bcutaneous syringe, [RxNorm: [id number] buprenorphine ER 100 mg/0.5 mL solutionexten.rel.merino bcutaneous syringe, [RxNorm: 0665304]buipbg18202207/15/2023 active NICOTINE 21MG/24H PATCH 14S, [RxNorm: [id number]]rrxeba97/01/2 022APPLY 1 PATCH TOPICALLY TO THE SKIN DAILY APPLY 1 PATCH TOPICALLY TO THE SKIN DAILY 07/15/2023 active QUETIAPINE FUMARATE 50 MG TAB, [RxNorm: 910306]uxviqv63/17/2 023TAKE 1 TABLET BY MOUTH 3 TIMES A DAY AT 8AM 1PM AND BEDTIME TAKE 1 TABLET BY MOUTH 3 TIMES A DAY AT 8AM, 1PM, AND BEDTIME 07/15/2023 active QUETIAPINE 100MG TABLETS, [RxNorm: 850194]wtyktx84/27/2 023TAKE 1 TABLET BY MOUTH EVERY NIGHT AT BEDTIME WITH QUETIAPINE 50MG TABLET FOR A TOTAL OF 150MG TAKE 1 TABLET BY MOUTH EVERY NIGHT AT BEDTIME WITH QUETIAPINE 50MG TABLET FOR A TOTAL OF 150MG 07/15/2023 active CRYSELLE-28 TABLET, [RxNorm: [id number]]/17/2 023TAKE 1 TABLET BY MOUTH EVERY DAY TAKE 1 TABLET BY MOUTH EVERY DAY 07/15/2023 active Problems Problem Status Onset Date Problem Type Date of Resoluti on Source Opioid abuse, in remission active 2023-07-11 [facility]Act [facility] Generalized anxiety disorder (disorder) active 2023-07-11 [facility] Bipolar II disorder (disorder) active 2023-07-11 [facility] Other stimulant abuse, in remission active 2023-07-11 [facility] Alcohol abuse (disorder) active 2023-07-11 [facility]
--- NOTE | 2024-11-07 16:14 | MHC.AM.SUB ---
Intake Visit Reasons: MAT office Allergies No Known Allergies Allergy (Verified 02/28/24 15:58) Medication List - Last Reconciled 11/07/24 by Melissa Rojas CNP buprenorphine ER (Sublocade) 100 mg (0.5 mL) subcut .monthly buprenorphine-naloxone 8-2 mg (Suboxone) 1 film sublingual DAILY PRN nicotine 21 mg transdermal Q24H quetiapine 100 mg PO BEDTIME quetiapine 50 mg PO TID HPI HPI MAT office: Details: Patient presents for follow up 3 months since last injection Feeling hot flashes and sweats randomly very brief --started about 3 weeks ago Still wanting to hold off on getting the injection Would like to possibly get it next month Working FT and still attending school Feeling positive about her recovery Would like to meet people her age. Discussed spaces to do that in that are not a bar Review of Systems Const Reports as per HPI and Reports no additional complaints Physical Exam Const General: cooperative, healthy appearing, comfortable and well groomed Nutritional Appearance: well nourished and thin Orientation/consciousness: patient oriented x3 Limitations: no limitations Neuro General: patient oriented x3 Psych Appearance: well kempt Speech and movement: Normal speech and movement present Affect: normal affect Attitude: cooperative Thought process: Normal thought process present Thought content: Normal thought content present Insight: Good insight present (Psych) Judgement: Good judgement present (Psych) Assessment & Plan Assessment & Plan (1) Opioid use disorder, severe, in sustained remission: Code(s): F11.21 - Opioid dependence, in remission Category: Medical Plan: relapse prevention discussion follow up 4 weeks with RN (2) Alcohol use disorder, severe, in sustained remission: Code(s): F10.21 - Alcohol dependence, in remission Category: Medical Plan: relapse prevention discussion labs ordered Orders: Orders Complete Blood Count Auto Diff 11/07/24 Z79.899 - Other terminal system operator (current) drug therapy
== END 2024-11-07 16:58 | disposition home or self-care (01) ==
PROVIDERS: PCP Physician Assistant; Visit Provider Nurse Practitioner Psychiatric/Mental Health
DX: F11.21 Opioid dependence, in remission (principal); F10.21 Alcohol dependence, in remission
CPT/HCPCS: 99213

== ENCOUNTER 2024-12-27 12:58 | Outpatient (REF) | payer BC, SELFPAY ==
[2024-12-27 13:51] LABS: MANUAL DIFF FLAG NO
[2024-12-27 14:24] LABS: Basophils Percent Auto 0.4 % (0-2); Eosinophils Absolute Auto 0.4 X10*3/uL (0.0-0.4); Eosinophils Percent Auto 5.6 % (0-4); Hemoglobin 12.6 g/dl (12.0-16.0); Imm Gran Abs Auto 0.03 X10*3/uL (0.00-0.03); Imm Gran Pct Auto 0.4 % (0.0-0.4); Lymphocytes Percent Auto 27.6 % (20-40); Mean Corpuscular HGB Conc 33.2 g/dl (31.0-35.0); Mean Corpuscular Hemoglobin 28.9 pg (27.0-33.0); Mean Corpuscular Volume 87.2 fL (80.0-98.0); Mean Platelet Volume 10.9 fL (9.4-12.3); Monocytes Absolute Auto 0.5 X10*3/uL (0.1-1.2); Monocytes Percent Auto 6.4 % (2-11); Neutrophils Absolute Auto 4.4 x10*3/uL (2.0-8.3); Neutrophils Percent Auto 59.6 % (45-73); Platelet Count 243 X10*3/uL (160-400); Red Blood Count 4.36 X10*6/uL (4.20-5.50); Red Cell Distribution Width 13.2 % (11.0-16.0); White Blood Count 7.4 X10*3/uL (4.8-10.8)
[2024-12-27 15:06] LABS: Alanine Aminotransferase 29 U/L (0-31); Albumin Level 4.3 g/dL (3.5-5.0); Alkaline Phosphatase 65 U/L (39-117); Anion Gap 10 (12-20); Aspartate Amino Transferase 25 U/L (5-31); Bilirubin Total 0.3 mg/dL (0.0-1.0); Blood Urea Nitrogen 17 mg/dL (9-16); Calcium 9.8 mg/dL (8.4-10.2); Carbon Dioxide 28 mmol/L (22-29); Chloride 107 mmol/L (96-108); Estimated Glomerular Filt Rate > 60; Glucose Random 87 mg/dL (60-115); Potassium 4.3 mmol/L (3.3-5.1); Sodium 141 mmol/L (135-145); Total Protein 7.6 g/dL (6.5-8.0)
== END 2024-12-27 12:59 | disposition home or self-care (01) ==
LOC: HO.LAB 12:58
PROVIDERS: Absent Provider Nurse Practitioner Psychiatric/Mental Health; PCP Physician Assistant
DX: Z79.899 Other long term (current) drug therapy (principal); F10.21 Alcohol dependence, in remission; F11.90 Opioid use, unspecified, uncomplicated
CPT/HCPCS: 36415; 80053; 81025; 85025; 96372; Q9991

== ENCOUNTER 2024-12-27 12:58 | Outpatient (AMB) | payer BC, SELFPAY ==
--- NOTE | 2024-12-27 12:54 | AM.OFFVISNUR ---
Vital Signs 12/27/24 14:35 BP 120/60 Blood Pressure Location Rt brachial Position Sitting Respiration 19 Pulse 88 Pulse Source Pulse Oximeter Pulse Oximetry (%) 98 Intake Visit Reasons: Sublocade Allergies No Known Allergies Allergy (Verified 02/28/24 15:58) Nursing Note Patient Presents for sublocade Injection. Current Dose 100mg. Given in the with no noted or stated complications. Denies any issues with previous injection. Denies symptoms, and denies any break through cravings. Last appt with provider was in october , will follow up with RN in 4 weeks for injection. Office Meds Sublocade 100 mg/0.5 mL solution,extended release subcutaneous syringe Performing Provider: Melissa Rojas CNP Performing Location: [facility] Administered by: Saima Rashid RN on 12/27/24 14:34 Dose Route Admin Location Dispensed Lot Number Expiration Date [facility] Account Service Associate 100 mg subcut LLQ 0.5 mL [id number] 08/31/25 [address]-5 [employer]. Results AMB Test Urine AMB Test Urine Negative Last Edit by Saima Rashid RN on 12/27/24 14:34 Assessment & Plan Assessment & Plan Orders: Orders AMB HCG Urine Test Today F10.21 - Alcohol dependence, in remission AMB Buprenorphine Injection Today F11.90 - Opioid use, unspecified, uncomplicated Medications: New Sublocade ER (buprenorphine) 100 mg (0.5 mL) subcut ONCE 0.5 mL 0RF NS F11.90 - Opioid use, unspecified, uncomplicated Coding
[2024-12-27 14:35] VITALS: BP 120/60; PULSE 88; RESP 19; O2SAT 98
== END 2024-12-27 13:46 | disposition home or self-care (01) ==
PROVIDERS: PCP Physician Assistant
DX: F11.90 Opioid use, unspecified, uncomplicated (principal); F10.21 Alcohol dependence, in remission